=== PATIENT | female | born 1950 | race Caucasian/White ===

== ENCOUNTER 2020-10-04 12:53 | Outpatient (CLI) | payer MEDICARE | END 2020-10-04 12:54 | disposition home or self-care (01) | LOC: CSHMRI 12:53 | PROVIDERS: ATTEND Psychiatry & Neurology Neurology | DX: G43.909 Migraine, unspecified, not intractable, without status migrainosus (principal); R90.82 White matter disease, unspecified | CPT/HCPCS: 70553; 82565 ==